=== PATIENT | male | born 1960 | race Caucasian/White ===

== ENCOUNTER → 2018-04-29 09:57 | Outpatient (CLI) | payer BC, SELFPAY ==
--- NOTE | 2018-04-29 | XR_ITS ---
XR hand RT min 3V HISTORY: Right hand pain ORDERING PHYSICIAN: Ophelia Cintron PATIENT AGE: 57 years COMPARISON: None FINDINGS: No fracture or dislocation. No lytic or blastic change. There is normal mineralization.. The joint spaces are well-preserved. No significant degenerative/arthritic changes. No erosive changes evident.. IMPRESSION: Negative, no acute finding
--- NOTE | 2018-04-29 | XR_ITS ---
XR hand LT min 3V HISTORY: ITS.REASON: BILATERAL HAND PAIN ORDERING PHYSICIAN: Ophelia Cintron PATIENT AGE: 57 years COMPARISON: None FINDINGS: No fracture or dislocation. No lytic or blastic change. There is normal mineralization.. The joint spaces are well-preserved. No significant degenerative/arthritic changes. No erosive changes evident.. IMPRESSION: Negative, no acute finding
== END ==
PROVIDERS: PCP Family Medicine; Visit Provider Nurse Practitioner
DX: M79.641 Pain in right hand (principal); M79.642 Pain in left hand
CPT/HCPCS: 73130

== ENCOUNTER 2024-09-09 10:04 | Outpatient (CLI) | payer BC, SELFPAY ==
[2024-09-09 18:20] LABS: Basophils % 0.5 % (0.1-2.0); Eosinophils # 0.1 K/mm3 (0.0-0.4); Eosinophils % 1.4 % (0.1-12.0); Hemoglobin 15.2 g/dL (14.1-18.0); Lymphocytes # 1.1 K/mm3 (0.7-4.5); Mean Corpuscular Hemoglobin 31.2 pg (27.0-31.2); Mean Corpuscular Volume 94.5 fl (80-94); Mean Platelet Volume 11.1 fl (7.4-10.4); Monocytes # 0.9 K/mm3 (0.1-1.0); Monocytes % 13.7 % (1.7-9.3); Neutrophils # 4.3 K/mm3 (1.8-7.8); Neutrophils % 66.9 % (37.0-80.0); Platelet Count 290 K/mm3 (142-424); Red Blood Count 4.87 M/mm3 (4.60-6.20); Red Cell Distribution Width 13.4 % (11.5-17.5); White Blood Count 6.4 K/mm3 (4.8-10.8)
[2024-09-09 20:04] LABS: Alanine Aminotransferase 23 U/L (12-78); Albumin Level 3.9 g/dl (3.5-5.0); Albumin/Globulin Ratio 1.5 (1.1-1.8); Alkaline Phosphatase 62 U/L (38-126); Anion Gap 8.6 mEq/L (5-15); Aspartate Amino Transferase 23 U/L (17-59); Bilirubin,Total 0.6 mg/dl (0.2-1.3); Blood Urea Nitrogen 23 mg/dl (9-20); Carbon Dioxide 25 mmol/L (22.0-30.0); Chloride 106 mmol/L (98-107); Chol/HDL Ratio 4.8 (1-3.5); Cholesterol 173 mg/dl (140-200); Estimated Glomerular Filt Rate 85 ml/min (>60); GFR (African American) 103 ML/MIN (>60); Globulin 2.6 g/dL (1.3-3.2); Glucose 94 mg/dl (74-100); HDL Cholesterol 36 mg/dl (40-60); Potassium 4.6 mmoL/L (3.5-5.1); Sodium 135 mmol/L (136-145); Total Protein,Serum 6.5 g/dl (6.3-8.2); Triglycerides 68 mg/dl (30-150); VLDL Cholesterol 14 mg/dL (0-40)
[2024-09-09 20:15] LABS: Direct LDL Cholesterol 109.05 mg/dL (100-129)
[2024-09-09 20:35] LABS: Thyroid Stimulating Hormone 0.48 uIU/mL (0.465-4.68)
== END 2024-09-09 23:59 | disposition home or self-care (01) ==
LOC: LAB.DROPOF 09-12 12:13
PROVIDERS: PCP Nurse Practitioner Family; Visit Provider Nurse Practitioner Family
DX: Z12.5 Encounter for screening for malignant neoplasm of prostate (principal); I10 Essential (primary) hypertension; F43.23 Adjustment disorder with mixed anxiety and depressed mood; F17.210 Nicotine dependence, cigarettes, uncomplicated; R22.1 Localized swelling, mass and lump, neck
CPT/HCPCS: 80053; 80061; 84436; 84443; 85025; G0103

== ENCOUNTER 2024-10-06 14:27 | Outpatient (CLI) | payer BC, SELFPAY ==
[2024-10-06] MEDS: SODIUM CHLORIDE 0.9% 10ML SYR (RAD ONLY) 10 ML IV (14:40)
[2024-10-06] MEDS: IOPAMIDOL-370 (76%);100ML BOTTLE 75 ML IV (14:40)
--- NOTE | 2024-10-06 14:45 | CT_ITS ---
FINAL REPORT TECHNIQUE: Thin section axial CT images with coronal and sagittal reformats were performed after the administration of IV contrast. Precontrast images were also obtained. This study was performed with techniques to keep radiation doses as low as reasonably achievable (ALARA). Individualized dose reduction techniques using automated exposure control or adjustment of mA and/or kV according to the patient''s size were employed. CLINICAL HISTORY: Nodule posterior neck COMPARISON: None FINDINGS: The salivary glands are normal. The paranasal sinuses are clear. The larynx is normal. The thyroid is unremarkable. The reported nodule in the posterior neck was not precisely described in the history on location. However, there is a lipoma in the subcutaneous tissues which is seen overlying the left upper paraspinal musculature extending from the skull base to the C3 level. This measures 5 cm in height by 5.6 cm in width by 2 cm in thickness IMPRESSION: No soft tissue mass or adenopathy. Lipoma upper left paracervical subcutaneous tissues as above. Reviewed, Interpreted and Dictated by Monica Fischer MD Transcribed by Lisa Segal Authenticated and [facility]
== END 2024-10-06 23:59 | disposition home or self-care (01) ==
PROVIDERS: PCP Nurse Practitioner Family; Visit Provider Nurse Practitioner Family
DX: R22.1 Localized swelling, mass and lump, neck (principal)
CPT/HCPCS: 70492; Q9967

== ENCOUNTER 2024-10-30 16:47 | Emergency (ER) | payer BC, SELFPAY ==
[2024-10-30 16:58] VITALS: BP 146/95; PULSE 75; RESP 17; TEMP 36.6; O2SAT 95; BMI 28.2
[2024-10-30 17:00] VITALS: BP 146/95; PULSE 79; O2SAT 94
[2024-10-30 17:30] VITALS: BP 131/89; PULSE 73; O2SAT 94
[2024-10-30 18:00] VITALS: BP 145/101; PULSE 75; O2SAT 95
[2024-10-30 18:30] VITALS: BP 163/113; PULSE 72; O2SAT 95
[2024-10-30 19:15] VITALS: BP 145/82; PULSE 85; RESP 18; TEMP 36.7; O2SAT 98
[2024-10-30] MEDS: KETOROLAC 30MG/ML VIAL 30 MG IM (19:19)
--- NOTE | 2024-10-30 22:27 | ED_ITS ---
<Statement entered by Jamaal Arambula MD - 10/30/24 23:26> I was consulted by the MELISSA, and we discussed the complexity of the problems being addressed. I approved the treatment and management plan for this patient's care in the emergency department, thus performing a substantive portion of the medical decision making. Jamaal Arambula MD, KRISTIN, FACEP Discharge Plan Disposition Patient Disposition: Home, Self-Care Condition: Good Prescriptions Prescriptions: New methylprednisolone [Medrol (Reese)] 4 mg tablets,dose pack 4 mg PO DAILY Qty: 21 0RF methocarbamol 500 mg tablet 500 mg PO Q8H PRN (Reason: pain) Qty: 14 0RF No Action lisinopril-hydrochlorothiazide 20-25 mg tablet See Rx Instructions .ROUTE .COMPLEX Qty: 30 5RF Dose Instruction: Take 1 Tablet by mouth once daily. Rx Instructions: Take 1 Tablet by mouth once daily. meloxicam 15 mg tablet 15 mg PO DAILY 30 Days Qty: 30 2RF Referrals Follow up/Referrals: Henry East APRN [Primary Care Provider] - See instructions Activity Restrictions/Add. Instructions Additional Instructions/Restrictions: You were seen for back pain. Please follow up with your PCP. Return to the ER if you have leg weakness, incontinenence, fever or numbness in the groin. Clinical Impressions Clinical Impression: Lumbosacral strain Instructions Patient Instructions: DI for Low Back Pain Print Language Print Language: [place] Discharge ED Provider: Jamaal Arambula General Adult HPI General Chief complaint: Back Pain/Injury Stated complaint: AO 10/30/24 1530, twisted back, lower back pain Time Seen by Provider: 10/30/24 16:58 Mode of Arrival: Family Vehicle Source of Information: Patient and Medical Record Description of Symptoms (Recalled from ER Triage Doc. by RN): Pt c/o L lower back pain that began after he was lifting and twisting while moving a 35-40# flower bed. States he sometimes twists my back and PCP in [place] gives him a shot that helps. He takes Meloxicam daily for arthritis. 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 History of Present Illness HPI narrative: Patient presents complaining of left lower back pain. He reports that he was lifting and twisting while lifting a flowerpot around 330 today. He denies any bowel or bladder incontinence or saddle anesthesias. Denies taking any medications at home prior to arrival. Denies any fevers or vomiting. MD complaint: Low back pain Onset (ago): hour(s) Location: back Radiation: non-radiation Severity: moderate Consistency: constant Relieving factors: none Exacerbating factors: none Associated symptoms: negative fever/chills or nausea/vomiting Related Data Previous Rx's ?Medication ?Instructions ?Recorded lisinopril 20 See Rx Instructions .Route 03/21/24 mg-hydrochlorothiazide 25 mg tablet .COMPLEX #30 tabs meloxicam 15 mg tablet 15 mg PO DAILY 30 days #30 tabs 09/30/24 methocarbamol 500 mg tablet 500 mg PO Q8H PRN pain #14 tabs 10/30/24 methylprednisolone 4 mg tablets in 4 mg PO DAILY #21 tabs 10/30/24 a dose pack (Medrol (Reese)) Allergies Allergy/AdvReac Type Severity Reaction Status Date / Time No Known Allergies Allergy Verified 09/09/24 09:30 [facility] Disclaimer: The information contained in this section may have been updated after the patient was seen, as this information can be updated by other users. Medical History Grief Situational mixed anxiety and depressive disorder Primary hypertension Surgical History History of hernia surgery Social History Smoking Status: Current every day smoker alcohol intake: never substance use type: denies use current occupational status: employed Travel in the last 8 weeks?: None Have you lived/traveled outside US in past 30 days?: No Contact w/someone who lives/traveled outside US past 30 days?: No Exposure to someone with infectious disease in past 14 days?: No Do you have a fever (greater than 100.4 F or 38 C)?: No Have you tested positive for COVID-19?: No Exposed to someone with COVID-19 in past 14 days?: No Do you have a sore throat?: No Do you have a cough?: No Do you have any weakness?: No Do you have any diarrhea?: No Are you experiencing any unusual bleeding?: No Do you have any muscle aches/pain?: No Do you have any abdominal pain?: No Are you experiencing loss of taste or smell?: No Other Medical History Have you received the Pneumonia Vaccine: No ROS Obtained: Yes Systems reviewed as appropriate & no additional complaints except as documented Physical Exam General General appearance: alert and in no apparent distress Head Head exam: atraumatic and normocephalic Eye Eye exam: Present normal appearance and EOMI Chest Chest inspection: Present symmetric chest wall rise Respiratory Respiratory exam: Present normal lung sounds bilaterally; Absent wheezes or stridor Cardiovascular Cardiovascular exam: Present regular rate and normal rhythm; Absent systolic murmur Extremities Exam Extremities exam: Present full ROM Back Exam Back exam: Present other (Tenderness in the left SI joint region); Absent full ROM (Limited rotation and lateral flexion) Neurological Exam Neurological exam: Present alert, oriented X3 and reflexes normal Psychiatric Psychiatric exam: Present normal affect and normal mood Skin Skin exam: Present warm, dry and intact Medical Decision Making Medical Records Screening: Per USPSTF and CDC recommendations, given the prevalence of disease in our region, it is our hospital?s policy to screen for HIV and viral Hepatitis for all patients aged 18 and over and those with ongoing risk factors. Hakeem Inquiry Pt receiving controlled substance: No Vital Signs: 10/30/24 16:58 10/30/24 17:00 10/30/24 17:30 Temperature 97.8 F Temperature Source Oral Pulse Rate 79 73 Pulse Rate [Right] 75 Respiratory Rate 17 Blood Pressure 146/95 H 131/89 Blood Pressure [Right Arm] 146/95 H Blood Pressure Mean [Right Arm] 112 Blood Pressure Source Blood Pressure Source [Right Arm] Automatic Cuff 02 Sat by Pulse Oximetry 95 94 L 94 L Oxygen Delivery Method Room Air Room Air Room Air 10/30/24 18:00 10/30/24 18:30 10/30/24 19:15 Temperature 98.0 F Temperature Source Oral Pulse Rate 75 72 85 Pulse Rate [Right] Respiratory Rate 18 Blood Pressure 145/101 H 163/113 H 145/82 H Blood Pressure [Right Arm] Blood Pressure Mean [Right Arm] Blood Pressure Source Automatic Cuff Blood Pressure Source [Right Arm] 02 Sat by Pulse Oximetry 95 95 Oxygen Delivery Method Room Air Room Air Room Air Orders (Tests/Meds): ED MEDICATIONS Discontinued Medications Generic Name Dose Route Start Last Admin Trade Name Freq PRN Reason Stop Dose Admin Ketorolac Tromethamine 30 mg 10/30/24 17:31 10/30/24 19:19 Ketorolac 30mg/Ml Vial IM 10/30/24 17:32 30 mg ONCE ONE Administration Medical Decision Narrative: In summary patient is a 63-year-old who presents the emergency department for evaluation of low back. Patient is hemodynamically stable upon arrival, afebrile. Tender over left SI joint. Differential diagnosis includes SI joint strain, lumbosacral strain. No midline tenderness on exam or direct trauma. Patient given Toradol and will be started on Medrol and Robaxin at home. Follow-up with PCP. Critical Care Critical Care Time Critical Care Time: No
== END 2024-10-30 19:20 | disposition home or self-care (01) ==
PROVIDERS: Emergency Provider Student in an Organized Health Care Education/Training Program; PCP Nurse Practitioner Family
DX: S39.012A Strain of muscle, fascia and tendon of lower back, initial encounter (principal); X50.0XXA Overexertion from strenuous movement or load, initial encounter
CPT/HCPCS: 96372; 99283; J1885

== ENCOUNTER 2025-03-09 10:00 | Outpatient (CLI) | payer BC, SELFPAY ==
[2025-03-09 14:54] LABS: Coronavirus 19, PCR Not Detected (NotDetected); Influenza A, PCR Not Detected (NotDetected); Influenza B, PCR Not Detected (NotDetected)
--- OUTSIDE RECORDS SUMMARY | 2025-03-10 10:23 | XMS_ITS | Clinical Summary ---
Author Organization [facility] Address [address] [place] [address] Phone Care Team Providers Care Hair Boiler Name Role Phone Bandar Avila MD Primary Care Provider [phone] Allergies No known active allergies Medications lisinopril (PRINIVIL;ZESTRI L) 20 mg Oral Tablet tablet Take 20 mg by mouth daily. Active meloxicam (MOBIC) 15 mg Oral Tablet Take 15 mg by mouth daily. 09/30/2024 Active Hospital, Clinic, or Other Facility Administered Medication Ordered Dose Route Frequency Start Date End Date Status betamethasone acet-betamethasone sodium phos (CELESTONE) injection 1 mgIndications:Primary osteoarthritis of first carpometacarpal joint of right hand 1 mg IAtc 07/18/2022 Active Active Problems Problem Noted Date Diagnosed Date Lipoma of neck 10/17/2024 Assessment & Plan (10/23/2024 10:10 PM EDT): Orders: BETA SURGERY COMMUNICATION ORDER Non-recurrent unilateral ing uinal hernia without obstruction or gangrene 10/03/2018 Immunizations Immunization Administration Dates Next Due DT 05/20/2010 Surgical History Surgery Date Site/Laterality Comments HERNIA REPAIR Bilateral 1980 WISDOM TOOTH EXTRACTION GLAUCOMA SURGERY Bilateral laser procedure Medical History Medical History Date Comments Hypertension Arthritis hands Glaucoma hx of, had surge ry Post-operative nausea and vomiting Motion sickness seasick Family History Medical History Relation Name Comments Unknown Father enlarged heart Mother Anesth Problems Neg Hx Relation Name Status Comments Father Mother Social History Tobacco Use Types Packs/Day Years Used Date Smoking Tobacco: Every Day Cigarettes 1 50.7 Started: 1974 Passive Smoke Exposure: Past Smokeless Tobacco: Never Tobacco Cessation:Ready to Q uit: No; Counseling Given: Not Answered Alcohol Use Standard Drinks/Week Comments No 0 (1 standard drink = 0.6 oz pur e alcohol) Sex and Gender Information Value Date Recorded Sex Assigned at Not on file Legal Sex Male 12:48 AM EDT Gender Identity Not on file Sexual Orientation Not on file Obstetrics History Last Filed Vital Signs Vital Sign Reading Time Taken Comments Blood Pressure 145/72 10/25/2024 11:52 AM EDT Pulse 70 10/25/2024 11:52 AM EDT Temperature 36.8 C (98.2 F) 10/25/2024 9:31 AM EDT Respiratory Rate 16 10/25/2024 11:52 AM EDT Oxygen Saturation 94% 10/25/2024 11:52 AM EDT Inhaled Oxygen Concentration - - Weight 97.1 kg (214 lb) 10/17/2024 4:00 PM EDT Height 185.4 cm (6' 1 ) 10/17/2024 4:00 PM EDT Body Mass Index 28.23 10/17/2024 4:00 PM EDT Plan of Treatment Health Maintenance Due Date Last Done Comments Annual Wellness Exam 12/28/1962 Hepatitis C Screening 12/28/1977 Pneumococcal Vaccine 50+ (1 of 2 - PCV) 12/28/1978 Cologuard 12/28/2004 Colon Cancer Screening 12/28/2004 Colonoscopy 12/28/2004 FIT 12/28/2004 Sigmoidoscopy 12/28/2004 Virtual Colonography 12/28/2004 Low Dose Lung Cancer Screening 12/28/2009 Zoster (1 of 2) 12/28/2009 DTaP/TDaP/Td (2 - Tdap) 05/20/2020 05/20/2010 AAA Screening 12/28/2024 COVID-19 Vaccine (1 - 2023-2 5 season) 2025 Influenza Vaccine (#1) 2025 Hepatitis B Vaccine Aged Out No longe r eligible based on patient's age to complete this topic Meningococcal B Vaccine Aged Out No l onger eligible based on patient's age to complete this topic Insurance AN[employer]M PPO [facility] ANTHEM PPO Member Subscriber Plan / Payer (Ef fective 2015-Present) Name:Bernabe Laughlin Relation to Subscriber:Self Name:Bernabe Laughlin Payer ID:[id number] (NAIC) Type:Not on file Address: [address] [place] [id number] [employer] PPO Member Subscriber Plan / Payer (Ef fective 2015-Present) Name:Qian Bernabe Relation to Subscriber:Self Name:Laughlin Bernabe Payer ID:[id number] (NAIC) Type:Not on file Address: [place] [phone] Care Teams Hair Boiler Relationship Specialty Start Date End Date Bandar Avila MD [facility] [place] [address] PCP - General Family Medicine 07/28/15
== END 2025-03-09 23:59 ==
LOC: LAB.DROPOF 03-10 10:21
PROVIDERS: PCP Nurse Practitioner; Visit Provider Nurse Practitioner
DX: J06.9 Acute upper respiratory infection, unspecified (principal)
CPT/HCPCS: 87636